=== PATIENT | female | born 1945 | race Caucasian/White ===

== ENCOUNTER 2016-10-30 13:01 | Emergency (ER) | payer OTHER, MEDICARE ==
[~2016-10-30] VITALS: Ht 167.6 cm; Wt 96.0 kg
[~2016-10-30 13:01] MED LIST: DARV PO; DIPH2%T; POTA-243 PO; SYNT25TA
[2016-10-30 13:11] VITALS: BP 162/86; PULSE 96; RESP 16; TEMP 98.5; O2SAT 95
[2016-10-30] MEDS ORDERED: SYNT25TA PO (13:30)
[2016-10-30] MEDS ORDERED: MELO-1 PO (13:30)
[2016-10-30] MEDS ORDERED: CYCL1TAB29 PO (13:57)
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
== END 2016-10-30 14:17 | disposition home or self-care (01) ==
LOC: PHEFT 13:01
DX: T14.8 Other injury of unspecified body region (principal); M62.838 Other muscle spasm; E78.00 Pure hypercholesterolemia, unspecified; I10 Essential (primary) hypertension; E07.9 Disorder of thyroid, unspecified; V43.52XA Car driver injured in collision with other type car in traffic accident, initial encounter
CPT/HCPCS: 99283